=== PATIENT | female | born 1995 | race Two or more races ===

== ENCOUNTER 2017-03-12 07:01 | Emergency (ER) | payer OTHER ==
[~2017-03-12] VITALS: Ht 162.6 cm; Wt 64.4 kg
[~2017-03-12 07:01] MED LIST: BACTRIM DS TABL1 TA1 PO; DIFLUCAN PO; FLEXERIL10 MG PO; NAPROSYN500 MG PO; NO MEDICATIONS; PYRIDIUM PO; ZITHROMAX PO
== END 2017-03-12 08:01 | disposition home or self-care (01) ==
LOC: SED 07:01
DX: M54.41 Lumbago with sciatica, right side (principal); F17.200 Nicotine dependence, unspecified, uncomplicated
CPT/HCPCS: 96372; 99283; J1885; J2360